=== PATIENT | female | born 1990 | race Caucasian/White ===

== ENCOUNTER 2018-12-17 12:08 | Emergency (ER) | payer OTHER ==
[~2018-12-17] VITALS: Ht 157.5 cm; Wt 63.5 kg
[2018-12-17 12:17] VITALS: BP 137/77; Ht 157.5 cm; Wt 63.5 kg
== END 2018-12-17 13:00 | disposition home or self-care (01) ==
LOC: ED 12:08
DX: S91.201A Unspecified open wound of right great toe with damage to nail, initial encounter (principal); Z91.040 Latex allergy status; W22.8XXA Striking against or struck by other objects, initial encounter; Y93.89 Activity, other specified; Y92.89 Other specified places as the place of occurrence of the external cause; Y99.8 Other external cause status